=== PATIENT | male | born 1995 | race Caucasian/White ===

== ENCOUNTER → 2018-02-14 | Outpatient (CLI) | payer BC ==
[~2018-02-14] MED LIST: ESCI10TA8 PO
[2018-02-14 15:32] LABS: PLATELET COUNT, AUTOMATED 240 K/uL (150-450)
[2018-02-14 15:44] LABS: LDL CHOLESTEROL 86 mg/dl
== END ==
LOC: LAB 15:08
PROVIDERS: ATTEND Internal Medicine
DX: F41.1 Generalized anxiety disorder (principal); R35.1 Nocturia; R63.4 Abnormal weight loss
CPT/HCPCS: 36415; 82040; 82150; 82247; 82310; 82374; 82435; 82465; 82565; 82947; 83036; 83690; 83718; 84075; 84132; 84155; 84295; 84439; 84443; 84450; 84460; 84478; 84520; 85025